=== PATIENT | female | born 1940 | race Caucasian/White ===

== ENCOUNTER 2016-12-22 05:51 | Day surgery (SDC) | payer OTHER ==
[~2016-12-22] VITALS: Ht 162.6 cm; Wt 54.9 kg
--- NOTE | ~2016-12-22 | O ---
[facility] [place] [address] OPERATIVE REPORT Name: HEBER BAKER Room #: DEP [facility] M.R.#: [id number] Admission: 12/22/16 Attend Phys: Britany Piper DPM Discharge: 12/22/16 Date of : 38 Report #: [id number] THIS REPORT FOR: //name// CC: Britany Becerra MD DATE OF SERVICE: 12/22/2016 PREOPERATIVE DIAGNOSES: 1. Severe painful hallux abductovalgus deformity, left foot with osteoporosis. 2. Painful hammertoe deformity, left second toe. 3. Contracture, second metatarsophalangeal joint, left foot. 4. Metatarsalgia, left second metatarsal head plantarly with associated callus. POSTOPERATIVE DIAGNOSES: 1. Severe painful hallux abductovalgus deformity, left foot with osteoporosis. 2. Painful hammertoe deformity, left second toe. 3. Contracture, second metatarsophalangeal joint, left foot. 4. Metatarsalgia, left second metatarsal head plantarly with associated callus. PROCEDURE: 1. Tailor bunionectomy, left foot. 2. Repair of hammertoe deformity, left second toe. 3. ____ capsulotomy, left second metatarsophalangeal joint. 4. Shortening and elevating osteotomy of the second metatarsal head with screw fixation, snap-off Integra screw, 2.7 x 12 mm. SURGEON: Britany Piper DPM. LITHOGRAPHIC ARTIST: None. ESTIMATED BLOOD LOSS: Minimal. COMPLICATIONS: None. ANESTHESIA: Local MAC. PROCEDURE IN DETAIL: Under mild sedation, the patient was brought to the operating room and placed on the operating table in supine position. Following sedation, local anesthesia was obtained about the patient's left foot utilizing a total of 30 mL of a 1:1 mixture of 1% lidocaine plain and 0.5% Marcaine plain. The foot was then scrubbed, prepped and draped in the usual aseptic manner. An Esmarch bandage was utilized to exsanguinate the patient's left foot and the pneumatic ankle tourniquet was then inflated. Attention was directed to the [address] [address] OPERATIVE REPORT Name: HEBER BAKER Room #: DEP [facility] M.R.#: [id number] Admission: 12/22/16 Attend Phys: Britany Piper DPM Discharge: 12/22/16 Date of : 38 Report #: [id number] dorsal aspect of the left foot where a severe bunion deformity was noted. I made a 6 cm linear longitudinal incision directly over the area of bunion deformity. This incision was deepened through the subcutaneous tissues utilizing sharp and blunt dissection techniques. Care was taken to identify and retract ____ structures. The bleeders were ligated and cauterized as necessary. A linear capsulotomy was performed at this time ____ the first metatarsal head at the operative site. It was fairly obvious we have some issues of osteoporosis with the bone having soft and friable. I resected the base of the proximal phalanx of the hallux and passed off the field. Again, very soft bone noted in all these bone cuts very friable. I irrigated with copious amounts of normal sterile saline. I then interposed capsular tissue at this level, secured utilizing 3-0 Vicryl. I used a 0.062 K-wire driven through the distal aspect of the proximal phalanx up to the distal aspect of the toe, retrograded proximally into the remaining first metatarsal. Used the C-arm to confirm reduction of the deformity which was noted to be much improved and satisfied with those, irrigated with copious amounts of normal sterile saline. Subcuticular tissue was reapproximated with 4-0 Vicryl and 4-0 Prolene in a running fashion. Attention was turned to the second toe. The second toe was severely deformed overlapping the hallux and in the flexed position. I made a 2 cm elliptical incision directly over the second interphalangeal joint and I resected this ellipse of skin in toto passed off the field. ____ this level, so severe deformity here I performed extensor leslie release and then a tenotomy, capsulotomy at the second metatarsophalangeal joint via an extended skin incision. We still had significant contraction of the joint, which was necessitated due to the longevity of her deformities related to lupus and rheumatoid arthritis. I then exposed the second metatarsal head at the operative site. I used a sagittal saw to perform an osteotomy of the second metatarsal head. The metatarsal head seemed to easily find its appropriate position, which was shortened and ____ in place to secure fixation utilizing 2.7 x 12 mm cortical snap-off screw. C-arm was used to confirm placement of the screw and reduction of the osteotomy, which was noted to be good. Again, the bone stock was fairly poor. Despite this, we did have okay purchase on this bone. I then irrigated with copious amounts of normal sterile saline. I removed the articular surfaces of the proximal phalangeal joint and passed them off from the operative field. Then, used a 0.045 K-wire driven that distally through the distal aspect of the toe, retrograded proximally into the remaining aspect of the proximal phalanx into the second metatarsal head. Very good correction of the deformity was noted. I was very satisfied with this. I irrigated with copious amount of normal sterile saline. C-arm was used to confirm reduction of the deformities which was noted to be excellent. I then reapproximated the deep tissue utilizing 3-0 Vicryl, 4-0 Vicryl for subcutaneous tissues and then 4-0 Prolene in a running fashion for the remainder. I injected a postop block consisting of 20 mL of 0.5% Marcaine plain. A light sterile dressing was applied. The pneumatic ankle tourniquet was deflated and a prompt hyperemic response was noted to the left foot. Following a period of postoperative monitoring, the patient will be discharged home with following [facility] [address] [place] [address] OPERATIVE REPORT Name: SAMUELHEBER LETTY Room #: DEP [facility] M.R.#: [id number] Admission: 12/22/16 Attend Phys: Britany Piper DPM Discharge: 12/22/16 Date of : 38 Report #: [id number] written and oral postop instructions. She is to be nonweightbearing on the left foot with the use of a walker and a Cam boot. She was given instructions on this preoperatively. Family members were given instructions as well. She will follow up with me in 1 week or sooner if problems occur. She is to keep the dressings clean, dry and intact, reinforce as necessary. She was given 2 grams of Ancef intraoperatively and I also gave her a prescription for cephalexin 500 mg 1 p.o. t.i.d. ____ prophylactic and due to her history of lupus and rheumatoid arthritis, she is higher risk for infection. She is to follow up with me in 1 week or sooner if problems occur. By: [id number] Britany Piper DPM /nt
--- NOTE | ~2016-12-22 | EKG ---
[place] [address] [facility] [place] [address] ELECTROCARDIOGRAM REPORT Name: HEBER BAKER Room #: 150-4 [facility] M.R.#: [id number] Admission: 12/22/16 Attend Phys: Britany Piper DPM Discharge: Date of : 38 Report #: [id number] THIS REPORT FOR: //name// [facility] Test Date: 2016-12-22 Test Time: 08:32:00 Pat Name: HEBER BAKER Department: Room: 150 4 Gender: F Recruit Instructor: RADHA : 1940 Requested By: Britany Piper Order Number: [id number] MD: Fady Degroot Measurements Intervals [place] Rate: 70 P: 81 SD: 143 QRS: 8 QRSD: 107 T: 38 QT: 411 QTc: 444 Interpretive Statements Sinus rhythm LAE, consider biatrial enlargement Abnormal R-wave progression, early transition No previous ECG available for comparison Electronically Signed On 12-22-2016 8:47:39 CDT by Fady Degroot [email or web address] <ELECTRONICALLY SIGNED> By: Fady Degroot MD, [facility] 12/22/16 0847 1 1 Fady Degroot MD, [facility] /EPI
[~2016-12-22 05:51] MED LIST: ADVIL PO; ASPIR 8181 MG PO; COZAAR 50 MG TA50 M2 PO; FOSAMAX 70 MG T70 MG PO; HYDROXYCHLOROQ200 M1 PO; NORCO 5-325 TA1 EACH PO; POTASSIUM CITRATE PO; PREDNISONE 10 M10 MG PO; VITAMIN D2400 UNIT PO; [UNRECOGNIZED DRUG - OTHER] OR; [UNRECOGNIZED DRUG - OTHER] OR
[2016-12-22 08:55] VITALS: BP 177/76
== END 2016-12-22 12:30 | disposition home or self-care (01) ==
LOC: OR 05:51 → TBA 05:51 → OR 09:14
DX: M20.42 Other hammer toe(s) (acquired), left foot (principal); M21.612 Bunion of left foot; M24.575 Contracture, left foot; M77.42 Metatarsalgia, left foot; L84 Corns and callosities; M81.0 Age-related osteoporosis without current pathological fracture; Z87.891 Personal history of nicotine dependence; I10 Essential (primary) hypertension; Z87.442 Personal history of urinary calculi; M06.042 Rheumatoid arthritis without rheumatoid factor, left hand; Z98.41 Cataract extraction status, right eye; Z98.42 Cataract extraction status, left eye; Z96.1 Presence of intraocular lens; Z98.890 Other specified postprocedural states; Z85.828 Personal history of other malignant neoplasm of skin
CPT/HCPCS: 50010; 50101; 50386; 50951; 51281; 51291; 53010; 53023; 55430; 56526; 56871; 57091; 62110; 62850; 70005

== ENCOUNTER 2019-01-05 14:23 | Emergency (ER) | payer OTHER ==
[~2019-01-05] VITALS: Ht 162.6 cm; Wt 56.7 kg
[2019-01-05 16:18] LABS: HEMATOCRIT 39.8 % (37.0-47.0); HEMOGLOBIN 12.9 gm/dL (12.0-15.0); MCH 29.8 pg (26.0-34.0); MCHC 32.5 g/dL (28.0-37.0); MCV 91.7 fL (80.0-100.0); RBC 4.34 mil/uL (4.20-5.00); RDW 13.2 % (10.5-14.5); WBC 4.3 thou/uL (4.0-11.0)
[2019-01-05 16:28] LABS: ANION GAP 10 mmol/L (7-16); BUN 27 mg/dL (7-18); CALCIUM 9.8 mg/dL (8.5-10.1); CHLORIDE 104 mmol/L (98-107); CO2 28 mmol/L (21-32); CREATININE 1.4 mg/dL (0.6-1.0); GLUCOSE 80 mg/dL (74-106); POTASSIUM 4.4 mmol/L (3.5-5.1); SODIUM 142 mmol/L (136-145)
[2019-01-05 16:37] LABS: TROPONIN-I <0.06 ng/mL (<0.06)
[2019-01-05 16:52] VITALS: BP 121/46
== END 2019-01-05 16:52 | disposition home or self-care (01) ==
LOC: ER 14:23
PROVIDERS: Physician Assistant
DX: S09.8XXA Other specified injuries of head, initial encounter (principal); S50.12XA Contusion of left forearm, initial encounter; W01.0XXA Fall on same level from slipping, tripping and stumbling without subsequent striking against object, initial encounter; Y93.89 Activity, other specified; Y92.89 Other specified places as the place of occurrence of the external cause; Y99.8 Other external cause status; M06.842 Other specified rheumatoid arthritis, left hand; M06.841 Other specified rheumatoid arthritis, right hand; Z85.828 Personal history of other malignant neoplasm of skin; Z87.891 Personal history of nicotine dependence